=== PATIENT | male | born 1955 | race Hispanic/Latino ===

== ENCOUNTER 2020-06-27 21:28 | Inpatient (IN) | payer OTHER, SELFPAY ==
[2020-06-27] MEDS ORDERED: NA CHLORIDE 0.9% 1,000 ML ONE (21:55)
[2020-06-27] MEDS ORDERED: ASPIRIN 81 MG CHEWABLE TABLET ONE ×2 (21:55→23:01)
[2020-06-27 22:03] LABS: Absolute Lymphocytes (CBC) 1.5 K/uL (0.7-4.9); Basophils % 0.5 % (0-1.3); Hematocrit 43.1 % (39.6-49.0); Lymphocytes % 13.6 % (15.3-44.8); MPV 8.7 fL (7.6-11.3); RBC Red Blood Cell Count 4.68 M/uL (4.33-5.43)
[2020-06-27 22:04] LABS: Protime INR 1.11
[2020-06-27 22:16] LABS: ALT/SGPT 33 U/L (12-78); AST/SGOT 22 U/L (15-37); Albumin 3.8 g/dL (3.4-5.0); Alkaline Phosphatase 90 U/L (45-117); BUN Blood Urea Nitrogen 14 mg/dL (7-18); Bicarbonate 27 mmol/L (21-32); Bilirubin Direct 0.1 mg/dL (0-0.2); Bilirubin Total 0.7 mg/dL (0.2-1.0); Glucose Level 101 mg/dL (74-106); Lipase 115 U/L (73-393); Magnesium 2.3 mg/dL (1.8-2.4); NT PRO-BNP 95 pg/mL (<125); Potassium 4.1 mmol/L (3.5-5.1); Protein, Total 7.6 g/dL (6.4-8.2); Sodium Level 141 mmol/L (136-145); Troponin (Emerg Dept Use Only) < 0.02 ng/mL (0.0-0.045)
[2020-06-27] MEDS ORDERED: METOPROLOL TARTRATE 5 MG/5 ML INJ IV ONE (22:33)
[2020-06-27] MEDS ORDERED: METOPROLOL TAR 50 MG TAB ONE (22:33)
--- NOTE | 2020-06-27 22:39 | EDPHYS ---
Physician Documentation [facility] Name: Rajinder Kelsey Age: 64 yrs Sex: Male : 1955 Arrival Date: 06/27/2020 Time: 21:29 Bed 17 Private MD: ED Physician Gio Tariq HPI: 06/27 21:44 This 64 yrs old Male presents to ER via EMS with complaints of Chest Pain. kayley 21:44 The patient or guardian reports chest pain that is located primarily in the substernal kayley area, epigastric area. Onset: this morning. The pain radiates to. Associated signs and symptoms: The patient has no apparent associated signs or symptoms. The chest pain is described as a heaviness. Duration: The patient or guardian reports a single episode, that is still ongoing. Modifying factors: The symptoms are alleviated by nothing. the symptoms are aggravated by nothing. Severity of pain: At its worst the pain was mild in the emergency department the pain is unchanged. The patient has not experienced similar symptoms in the past. Historical: - Allergies: 21:33 No Known Allergies; em - PMHx: 21:33 Hyperlipidemia; Hypertension; Kidney stones; em - PSHx: 21:33 None; em - Immunization history:: Adult Immunizations not up to date. - Social history:: Smoking status: Patient denies any tobacco usage or history of. - Family history:: not pertinent. ROS: 21:44 Constitutional: Negative for fever, chills, and weight loss, Eyes: Negative for injury, kayley pain, redness, and discharge, ENT: Negative for injury, pain, and discharge, Neck: Negative for injury, pain, and swelling, Respiratory: Negative for shortness of breath, cough, wheezing, and pleuritic chest pain, Abdomen/GI: Negative for abdominal pain, nausea, vomiting, diarrhea, and constipation, Back: Negative for injury and pain, : Negative for injury, bleeding, discharge, and swelling, MS/Extremity: Negative for injury and deformity, Skin: Negative for injury, rash, and discoloration, Neuro: Negative for headache, weakness, numbness, tingling, and seizure, Psych: Negative for depression, anxiety, suicide ideation, homicidal ideation, and hallucinations, Allergy/Immunology: Negative for hives, rash, and allergies, Endocrine: Negative for neck swelling, polydipsia, polyuria, polyphagia, and marked weight changes, Hematologic/Lymphatic: Negative for swollen nodes, abnormal bleeding, and unusual bruising. 21:44 Cardiovascular: Positive for chest pain, of the chest. Exam: 21:44 Constitutional: This is a well developed, well nourished patient who is awake, alert, kayley and in no acute distress. Head/Face: Normocephalic, atraumatic. Eyes: Pupils equal round and reactive to light, extra-ocular motions intact. Lids and lashes normal. Conjunctiva and sclera are non-icteric and not injected. Cornea within normal limits. Periorbital areas with no swelling, redness, or edema. ENT: Nares patent. No nasal discharge, no septal abnormalities noted. Tympanic membranes are normal and external auditory canals are clear. Oropharynx with no redness, swelling, or masses, exudates, or evidence of obstruction, uvula midline. Mucous membranes moist. Neck: Trachea midline, no thyromegaly or masses palpated, and no cervical lymphadenopathy. Supple, full range of motion without nuchal rigidity, or vertebral point tenderness. No Meningismus. Chest/axilla: Normal chest wall appearance and motion. Nontender with no deformity. No lesions are appreciated. Cardiovascular: Regular rate and rhythm with a normal S1 and S2. No gallops, murmurs, or rubs. Normal PMI, no JVD. No pulse deficits. Respiratory: Lungs have equal breath sounds bilaterally, clear to auscultation and percussion. No rales, rhonchi or wheezes noted. No increased work of breathing, no retractions or nasal flaring. Abdomen/GI: Soft, non-tender, with normal bowel sounds. No distension or tympany. No guarding or rebound. No evidence of tenderness throughout. Back: No spinal tenderness. No costovertebral tenderness. Full range of motion. Male : Normal genitalia with no discharge or lesions. Skin: Warm, dry with normal turgor. Normal color with no rashes, no lesions, and no evidence of cellulitis. MS/ Extremity: Pulses equal, no cyanosis. Neurovascular intact. Full, normal range of motion. Neuro: Awake and alert, GCS 15, oriented to person, place, time, and situation. Cranial nerves II-XII grossly intact. Motor strength 5/5 in all extremities. Sensory grossly intact. Cerebellar exam normal. Normal gait. Psych: Awake, alert, with orientation to person, place and time. Behavior, mood, and affect are within normal limits. 21:44 Musculoskeletal/extremity: ROM: no acute changes, intact in all extremities, full active range of motion, full passive range of motion, Circulation is intact in all extremities. Sensation intact. Compartment Syndrome exam of affected extremity: is normal. DVT Exam: No signs of deep vein thrombosis. no pain, no swelling, no tenderness, negative Homans' sign noted on exam, no appreciated bluish discoloration, no erythema, no increased warmth. Vital Signs: 21:29 BP 172 / 95; Pulse 72; Resp 18; Temp 98.8(O); Pulse Ox 99% on R/A; Weight 95.25 kg; em Height 5 ft. 10 in. (177.80 cm); Pain 4/10; 22:05 BP 155 / 99; Pulse 77; Resp 24 S; Pulse Ox 100% on R/A; ca1 22:30 BP 160 / 105; Pulse 81; Resp 20 S; Pulse Ox 100% on R/A; ca1 23:00 BP 147 / 104; Pulse 59; Resp 22 S; Pulse Ox 100% on R/A; ca1 23:51 BP 156 / 98; Pulse 54; Resp 20 S; Pulse Ox 100% on R/A; ca1 21:29 Body Mass Index 30.13 (95.25 kg, 177.80 cm) em MDM: 21:30 Patient medically screened. kayley 21:48 Differential diagnosis: abnormal EKG, anxiety, coronary artery disease chest wall pain, kayley congestive heart failure hiatal hernia, pancreatitis, pulmonary embolus, stable angina, unstable angina. HEART Score: History: Moderately Suspicious (1), ECG: Normal (0), Age: > 45 and < 65 years (1), Risk Factors: > or = 3 Risk factors for atherosclerotic disease (2), [Hypercholesterolemia] [Hypertension] [+ Family HX] [Obesity] Troponin: < or = 1 x Normal Limit (0), Total Score = 4. The patient was given aspirin in the Emergency Department. The patient's deep vein thrombosis risk score was calculated as follows: Total Score: 0. This patient was found to be at low risk for a deep vein thrombosis by using the Well's assessment criteria. The patient's pulmonary embolism risk score was calculated as follows: Total Score: 0-2 points. This patient was found to be at low risk for a pulmonary embolism by using the Well's assessment criteria. ALEX Risk Score: TOTAL SCORE = 0. Data reviewed: vital signs, nurses notes, lab test result(s), EKG, radiologic studies, plain films. Data interpreted: shelter monitor: rate is 72 beats/min, rhythm is regular, Pulse oximetry: on room air is 99 %. Test interpretation: by ED physician or midlevel provider: ECG, plain radiologic studies. 06/27 21:31 Order name: Basic Metabolic Panel; Complete Time: 22:20 [facility] 06/27 21:31 Order name: CBC with Diff; Complete Time: 22:13 [facility] 06/27 21:31 Order name: LFT's; Complete Time: 22:20 [facility] 06/27 21:31 Order name: Magnesium; Complete Time: 22:20 [facility] 06/27 21:31 Order name: NT PRO-BNP; Complete Time: 22:20 [facility] 06/27 21:31 Order name: PT-INR; Complete Time: 22:13 [facility] 06/27 21:31 Order name: Troponin (emerg Dept Use Only); Complete Time: 22:20 [facility] 06/27 21:31 Order name: XRAY Chest (1 view) [facility] 06/27 21:31 Order name: Lipase; Complete Time: 22:20 [facility] 06/27 22:15 Order name: Troponin (emerg Dept Use Only): midnight [facility] 06/27 21:31 Order name: EKG; Complete Time: 21:32 [facility] 06/27 21:31 Order name: Cardiac monitoring; Complete Time: 22:02 [facility] 06/27 21:31 Order name: EKG - Nurse/Tech; Complete Time: 22:02 [facility] 06/27 21:31 Order name: IV Saline Lock; Complete Time: 22:02 [facility] 06/27 21:31 Order name: Labs collected and sent; Complete Time: 22:02 [facility] 06/27 21:31 Order name: O2 Per Protocol; Complete Time: 22:02 [facility] 06/27 21:31 Order name: O2 Sat Monitoring; Complete Time: 22:02 [facility] Administered Medications: 21:45 Drug: Aspirin 81 mg Route: PO; em 22:54 Follow up: Response: No adverse reaction ca1 21:48 Drug: NS 0.9% 1000 ml Route: IV; Rate: 125 ml/hr; Site: right antecubital; ca1 22:54 Follow up: Response: No adverse reaction; IV Status: Infusion continued upon admission ca1 22:25 Drug: Lopressor (metoprolol TARTRATE) 50 mg Route: PO; ca1 22:54 Follow up: Response: No adverse reaction ca1 22:25 Drug: Lopressor 2.5 mg Route: IVP; Site: right antecubital; ca1 23:00 Follow up: Response: No adverse reaction; Blood pressure is lowered ca1 22:36 Drug: Lopressor 2.5 mg Route: IVP; Site: right antecubital; ca1 22:59 Follow up: Response: No adverse reaction; Blood pressure is lowered ca1 22:42 Drug: Pepcid 20 mg Route: IVP; Site: right antecubital; ca1 23:22 Follow up: Response: No adverse reaction ca1 22:45 Drug: Aspirin Chewable Tablet 243 mg Route: PO; ca1 23:22 Follow up: Response: No adverse reaction ca1 22:54 Drug: Lisinopril 20 mg Route: PO; ca1 23:21 Follow up: Response: No adverse reaction ca1 22:54 Drug: Lovenox 1 mg/kg Route: Sub-Q; Site: right lower abdomen; ca1 23:22 Follow up: Response: No adverse reaction ca1 Disposition: 06/27/20 22:39 Hospitalization ordered by Satish Luna for Observation. Preliminary diagnosis are Chest pain, unspecified, Essential (primary) hypertension, Hyperlipidemia, unspecified. - Bed requested for Telemetry/MedSurg (observation). - Status is Observation. jb4 - Condition is Stable. - Problem is new. - Symptoms have improved. Signatures: Dispatcher [employer] Aliyah Hernandez RN RN mw Anderson, Corey, MD MD cha Munoz, Edgar, RN RN em Bryson, James, RN RN jb4 Ju Lees RN RN ca1 Corrections: (The following items were deleted from the chart) 23:43 22:39 Hospitalization Ordered by Satish Luna MD for Observation. Preliminary diagnosis is Chest pain, unspecified; Essential (primary) hypertension; Hyperlipidemia, unspecified. Bed requested for Telemetry/MedSurg (observation). Status is Observation. Condition is Stable. Problem is new. Symptoms have improved. kayley 06/28 00:19 06/27 23:43 06/27/2020 22:39 Hospitalization Ordered by Satish Luna MD for jb4 Observation. Preliminary diagnosis is Chest pain, unspecified; Essential (primary) hypertension; Hyperlipidemia, unspecified. Bed requested for Telemetry/MedSurg (observation). Status is Observation. Condition is Stable. Problem is new. Symptoms have improved. mw
--- NOTE | 2020-06-27 22:39 | ER ---
Nurse's Notes [facility] Name: Rajinder Kelsey Age: 64 yrs Sex: Male : 1955 Arrival Date: 06/27/2020 Time: 21:29 Bed 17 Private MD: Diagnosis: Chest pain, unspecified;Essential (primary) hypertension;Hyperlipidemia, unspecified Presentation: 06/27 21:29 Chief complaint: EMS states: called out to [facility] for an inmate that reported chest pain, em tachycardia and nausea, rates pain 4/10, EMS also reports since he has been in custody he has not received his BP meds, [facility] officer at bedside. Coronavirus screen: Client denies travel out of the [place] in the last 14 days. Ebola Screen: Patient negative for fever greater than or equal to 101.5 degrees Fahrenheit, and additional compatible Ebola Virus Disease symptoms Patient denies exposure to infectious person. Patient denies travel to an Ebola-affected area in the 21 days before illness onset. No symptoms or risks identified at this time. Initial Sepsis Screen: Does the patient meet any 2 criteria? No. Patient's initial sepsis screen is negative. Does the patient have a suspected source of infection? No. Patient's initial sepsis screen is negative. Risk Assessment: Do you want to hurt yourself or someone else? Patient reports no desire to harm self or others. Onset of symptoms was June 27, 2020. 21:29 Method Of Arrival: EMS: [facility] em 21:29 Acuity: KIERSTEN 2 em Historical: - Allergies: 21:33 No Known Allergies; em - PMHx: 21:33 Hyperlipidemia; Hypertension; Kidney stones; em - PSHx: 21:33 None; em - Immunization history:: Adult Immunizations not up to date. - Social history:: Smoking status: Patient denies any tobacco usage or history of. - Family history:: not pertinent. Screenin:45 Abuse screen: Denies threats or abuse. Denies injuries from another. Nutritional ca1 screening: No deficits noted. Tuberculosis screening: No symptoms or risk factors identified. Fall Risk IV access (20 points). Assessment: 21:45 General: Appears in no apparent distress. comfortable, Behavior is calm, cooperative, ca1 appropriate for age. Pain: Complains of pain in chest Pain does not radiate. Pain currently is 4 out of 10 on a pain scale. Pain began today. Neuro: Level of Consciousness is awake, alert, obeys commands, Oriented to person, place, time, situation. Cardiovascular: Heart tones S1 S2 present Capillary refill < 3 seconds Patient's skin is warm and dry. Rhythm is sinus rhythm. Respiratory: Airway is patent Respiratory effort is even, unlabored, Respiratory pattern is regular, symmetrical, Breath sounds are clear bilaterally. GI: Abdomen is round non-distended, Bowel sounds present X 4 quads. Abd is soft and non tender X 4 quads. : No signs and/or symptoms were reported regarding the genitourinary system. EENT: No signs and/or symptoms were reported regarding the EENT system. Derm: Skin is intact, is healthy with good turgor, Skin is pink, warm \T\ dry. Musculoskeletal: Circulation, motion, and sensation intact. Capillary refill < 3 seconds. 22:41 Reassessment: Patient appears in no apparent distress at this time. Patient and/or ca1 family updated on plan of care and expected duration. Pain level reassessed. Patient is alert, oriented x 3, equal unlabored respirations, skin warm/dry/pink. 23:51 Reassessment: Patient appears in no apparent distress at this time. Patient and/or ca1 family updated on plan of care and expected duration. Pain level reassessed. Patient is alert, oriented x 3, equal unlabored respirations, skin warm/dry/pink. Vital Signs: 21:29 BP 172 / 95; Pulse 72; Resp 18; Temp 98.8(O); Pulse Ox 99% on R/A; Weight 95.25 kg; em Height 5 ft. 10 in. (177.80 cm); Pain 4/10; 22:05 BP 155 / 99; Pulse 77; Resp 24 S; Pulse Ox 100% on R/A; ca1 22:30 BP 160 / 105; Pulse 81; Resp 20 S; Pulse Ox 100% on R/A; ca1 23:00 BP 147 / 104; Pulse 59; Resp 22 S; Pulse Ox 100% on R/A; ca1 23:51 BP 156 / 98; Pulse 54; Resp 20 S; Pulse Ox 100% on R/A; ca1 21:29 Body Mass Index 30.13 (95.25 kg, 177.80 cm) em ED Course: 21:29 Patient arrived in ED. em 21:30 Gio Tariq MD is Attending Physician. kayley 21:32 Triage completed. em 21:33 Arm band placed on. em 21:45 Patient has correct armband on for positive identification. Placed in gown. Bed in low ca1 position. Call light in reach. Side rails up X2. athletic monitor on. Pulse ox on. NIBP on. Warm blanket given. 21:47 No provider procedures requiring assistance completed. Initial lab(s) drawn, by me, ca1 sent to lab. Inserted saline lock: 20 gauge in right antecubital area, using aseptic technique. Blood collected. Patient maintains SpO2 saturation greater than 95% on room air. 21:56 XRAY Chest (1 view) In Process Unspecified. EDMS 22:02 Ju Lees RN is Primary Nurse. ca1 22:37 Satish Luna MD is Hospitalizing Provider. kayley 23:51 Patient admitted, IV remains in place. ca1 Administered Medications: 21:45 Drug: Aspirin 81 mg Route: PO; em 22:54 Follow up: Response: No adverse reaction ca1 21:48 Drug: NS 0.9% 1000 ml Route: IV; Rate: 125 ml/hr; Site: right antecubital; ca1 22:54 Follow up: Response: No adverse reaction; IV Status: Infusion continued upon admission ca1 22:25 Drug: Lopressor (metoprolol TARTRATE) 50 mg Route: PO; ca1 22:54 Follow up: Response: No adverse reaction ca1 22:25 Drug: Lopressor 2.5 mg Route: IVP; Site: right antecubital; ca1 23:00 Follow up: Response: No adverse reaction; Blood pressure is lowered ca1 22:36 Drug: Lopressor 2.5 mg Route: IVP; Site: right antecubital; ca1 22:59 Follow up: Response: No adverse reaction; Blood pressure is lowered ca1 22:42 Drug: Pepcid 20 mg Route: IVP; Site: right antecubital; ca1 23:22 Follow up: Response: No adverse reaction ca1 22:45 Drug: Aspirin Chewable Tablet 243 mg Route: PO; ca1 23:22 Follow up: Response: No adverse reaction ca1 22:54 Drug: Lisinopril 20 mg Route: PO; ca1 23:21 Follow up: Response: No adverse reaction ca1 22:54 Drug: Lovenox 1 mg/kg Route: Sub-Q; Site: right lower abdomen; ca1 23:22 Follow up: Response: No adverse reaction ca1 Outcome: 22:39 Decision to Hospitalize by Provider. kayley 23:56 Admitted to Med/surg accompanied by tech, via wheelchair, room 216, with chart, Other ca1 with [employer] Report called to BATSHEVA Regalado 23:56 Condition: stable 23:56 Instructed on the need for admit. 06/28 00:19 Patient left the ED. jb4 Signatures: Dispatcher [employer] Gio Wilkes MD MD cha Munoz, Edgar, RN RN Avel Chavez RN RN jb4 Ju Lees RN RN ca1 Corrections: (The following items were deleted from the chart) 06/27 22:41 22:30 BP 160 / 105; Pulse 71bpm; Resp 20bpm; Spontaneous; Pulse Ox 100% RA; ca1 ca1
[2020-06-27] MEDS ORDERED: FAMOTIDINE 20 MG/2 ML VIAL IV ONE (23:01)
[2020-06-27] MEDS ORDERED: ENOXAPARIN 100 MG/ML SYR SQ ONE (23:01)
[2020-06-27] MEDS ORDERED: lisinopriL 20 MG TAB ONE (23:01)
[2020-06-28] MEDS ORDERED: MORPHINE 4 MG/ML SYR IV PRN (00:33)
[2020-06-28] MEDS ORDERED: ACETAMINOPHEN 500 MG TAB PO PRN (00:33)
[2020-06-28] MEDS ORDERED: ONDANSETRON 4 MG/2 ML VIAL IV PRN (00:33)
[2020-06-28 01:09] VITALS: BMI 28.3
--- NOTE | 2020-06-28 02:30 | P.HP ---
Certification for Inpatient Patient admitted to: Observation With expected LOS: <2 Midnights Patient will require the following post-hospital care: None Practitioner: I am a practitioner with admitting privileges, knowledge of patient current condition, hospital course, and medical plan of care. Services: Services provided to patient in accordance with Admission requirements found in Title 42 Section 412.3 of the Code of Federal Regulations <[place] - Last Filed: 06/28/20 02:23> Patient History Date of Service: 06/28/20 Reason for admission: Chest Pain History of Present Illness: This is a 64-year-old male that came in via EMS from police station with complaints of chest pain that started this morning and has continued throughout this evening. Describes chest pain as pressure in nature that is in the substernal region. No radiation of pain, no nausea or vomiting, no dizziness, no will diaphoresis. Patient has a history of hyperlipidemia and hypertension. Patient worked up in the emergency room for chest pain was given medication when which patient stated that he felt better. Patient had no acute electrolyte or CBC findings. 1st round troponin was negative. No acute findings on EKG or chest x-ray. Medicine was consulted for observation for chest pain at that time. Home medications list reviewed: Yes - Past Medical/Surgical History Has patient received pneumonia vaccine in the past: No Diabetic: No -: Hypertension -: Hyperlipidemia -: Kidney stones - Family History Father -: Heart disease, Diabetes Mother -: Cancer - Social History Smoking Status: Former smoker Smoking therapy provided: No Alcohol use: No CD- Drugs: No Caffeine use: Yes Place of Residence: Home <Neyda Vangshua - Last Filed: 06/28/20 02:23> Date of Service: 07/02/20 <Fabiano Sage - Last Filed: 07/02/20 10:53> Allergies No Known Allergies Allergy (Verified 06/28/20 00:07) Home Medications: Citalopram Hydrobromide [Citalopram HBr] 1 tab PO DAILY 06/28/20 Lisinopril [Zestril] 30 mg PO DAILY 06/28/20 Simvastatin 40 mg PO BEDTIME 06/28/20 Review of Systems General: Unremarkable Eyes: Unremarkable ENT: Unremarkable Respiratory: Unremarkable Cardiovascular: Chest Pain Gastrointestinal: Unremarkable Genitourinary: Unremarkable Musculoskeletal: Unremarkable Integumentary: Unremarkable Neurological: Unremarkable Lymphatics: Unremarkable <[place] - Last Filed: 06/28/20 02:23> Physical Examination - Vital Signs Temperature: 98.7 F Blood Pressure: 160/90 Pulse: 53 Respirations: 20 Pulse Ox (%): 97 - Physical Exam General: Alert, In no apparent distress, Oriented x3, Cooperative HEENT: PERRLA, Mucous membr. moist/pink, EOMI Neck: Supple, 2+ carotid pulse no bruit, JVD not distended, No Thyromegaly Respiratory: Clear to auscultation bilaterally, Normal air movement Cardiovascular: No edema, Normal pulses, Regular rate/rhythm, Normal S1 S2, No gallops, No rubs, No murmurs Capillary refill: <2 Seconds Gastrointestinal: Normal bowel sounds, Soft and benign, Non-distended, No ascites, No tenderness, No masses, No rebound, No guarding Musculoskeletal: No clubbing, No swelling, No contractures, No erythema, No tenderness, No warmth Integumentary: No rashes, No breakdown, No significant lesion, No tenderness/swelling, No erythema, No warmth, No cyanosis Neurological: Normal speech, Normal strength at 5/5 x4 extr, Normal tone, Sensation intact, Cranial nerves 3-12 intact, Normal affect Lymphatics: No axilla or inguinal lymphadenopathy - Studies Laboratory Data (last 24 hrs) 06/27/20 21:48: PT 13.1 H, INR 1.11 06/27/20 21:48: WBC 11.0 H, Hgb 14.4, Hct 43.1, Plt Count 202 06/27/20 21:48: Sodium 141, Potassium 4.1, BUN 14, Creatinine 1.11, Glucose 101, Magnesium 2.3, Total Bilirubin 0.7, AST 22, ALT 33, Alkaline Phosphatase 90, Lipase 115 <MandavirgilNeyda [place] - Last Filed: 06/28/20 02:23> Assessment and Plan - Problems (Diagnosis) (1) Hypertension Status: Acute (2) Hyperlipidemia Status: Acute (3) Chest pain Status: Acute - Plan 1. Patient will be admitted to telemetry floor to monitor heart rate and vital signs throughout the night. 2. Patient will have serial troponins drawn throughout the evening to ensure they do not elevate. EKGs as necessary 3. Cardiology has been consulted for chest pain secondary to age in history 4. Lipid panel be drawn to ensure patient is on adequate antihyperlipidemic 's 5. Patient will be given pain medicine as needed for chest pain 6. Blood pressure be controlled to a systolic pressure of 160 and or diastolic pressure 110 Patient hemodynamically stable and with minimal to no pain upon admission. If patient continues to remain stable and troponins returned negative. We will wait for cardiology to consult to see if they want to further assess patient's chest pain or he can be discharged for outpatient workup. I believe patient will be able to go home within the next 24 hr or less at this time. Discharge Plan: Other (Half-Way) - Advance Directives Does patient have a Living Will: No Does patient have a Durable POA for Healthcare: No - Code Status/Comfort Care Code Status Assessed: No Critical Care: No Time Spent Managing Pts Care (In Minutes): 70 <[place] - Last Filed: 06/28/20 02:23> - Plan Agree with plan as noted above by [place], monitor on telemetry, trend troponins, awaiting eval by cardiology. To be managed by Dr. Luna in AM of 06/28 <Fabiano Sage - Last Filed: 07/02/20 10:53>
[2020-06-28 06:05] LABS: Absolute Lymphocytes (CBC) 1.7 K/uL (0.7-4.9); Basophils % 0.7 % (0-1.3); Hematocrit 41.9 % (39.6-49.0); Lymphocytes % 16.3 % (15.3-44.8); MPV 9.1 fL (7.6-11.3); RBC Red Blood Cell Count 4.62 M/uL (4.33-5.43)
[2020-06-28] MEDS ORDERED: lisinopriL 20 MG TAB PO ONE (08:07)
[2020-06-28] MEDS ORDERED: METOPROLOL TARTRATE 5 MG/5 ML INJ IV ONE (08:07)
[2020-06-28] MEDS ORDERED: ASPIRIN EC 81 MG TAB PO SCH (09:00)
[2020-06-28] MEDS ORDERED: INFLUENZA VACCINE (for 3y+) 0.5 ML DOSE IMVAC ONE (09:00)
[2020-06-28 09:20] VITALS: O2SAT 96
--- NOTE | 2020-06-28 12:20 | RAD REPORT ---
EXAM DESCRIPTION: RAD - Chest Single View - 06/27/2020 9:56 pm CLINICAL HISTORY: CHEST PAIN Chest pain. COMPARISON: No comparisons FINDINGS: Portable technique limits examination quality. The lungs are grossly clear. The heart is normal in size. No displaced fractures. IMPRESSION: No acute intrathoracic process suspected.
[2020-06-28 16:01] VITALS: BP 138/69; TEMP 97.3
--- NOTE | 2020-06-28 16:44 | P.DS ---
Admission Date: 06/27/20 Discharge Date: 06/28/20 Disposition: ROUTINE DISCHARGE Discharge Condition: FAIR Reason for Admission: Chest Pain Consultations: DR. Wayne, cardiology Brief History of Present Illness: PT AW with chest pain Hospital Course: Admitted for observation. c/o chest pain. Pt was accompanied by a police lieutenant. Apperaed very anxious nervous. C/o chest pain. No cardiac hx, Ain resolced. Tropoins neg. Stable at the time of discharge. Vitals stable. S/E Dr. Wayne Vital Signs/Physical Exam: Temp Pulse Resp BP Pulse Ox 97.3 F 58 18 138/69 97 06/28/20 15:59 06/28/20 15:59 06/28/20 15:59 06/28/20 15:59 06/28/20 15:59 Laboratory Data at Discharge: WBC 10.5 K/uL (4.3-10.9) 06/28/20 05:13 Hgb 14.3 g/dL (13.6-17.9) 06/28/20 05:13 Hct 41.9 % (39.6-49.0) 06/28/20 05:13 Plt Count 190 K/uL (152-406) 06/28/20 05:13 PT 13.1 SECONDS (9.5-12.5) H 06/27/20 21:48 INR 1.11 06/27/20 21:48 Sodium 139 mmol/L (136-145) 06/28/20 05:13 Potassium 4.0 mmol/L (3.5-5.1) 06/28/20 05:13 BUN 15 mg/dL (7-18) 06/28/20 05:13 Creatinine 1.08 mg/dL (0.55-1.3) 06/28/20 05:13 Glucose 92 mg/dL (74-106) 06/28/20 05:13 Magnesium 2.3 mg/dL (1.8-2.4) 06/27/20 21:48 Total Bilirubin 0.7 mg/dL (0.2-1.0) 06/27/20 21:48 AST 22 U/L (15-37) 06/27/20 21:48 ALT 33 U/L (12-78) 06/27/20 21:48 Alkaline Phosphatase 90 U/L (45-117) 06/27/20 21:48 Troponin I < 0.02 ng/mL (0.0-0.045) 06/28/20 05:13 Triglycerides 128 mg/dL (<150) 06/28/20 05:13 Cholesterol 213 mg/dL (<200) H 06/28/20 05:13 HDL Cholesterol 77 mg/dL (40-60) H 06/28/20 05:13 Cholesterol/HDL Ratio 2.77 06/28/20 05:13 Lipase 115 U/L (73-393) 06/27/20 21:48 Home Medications: Citalopram Hydrobromide [Citalopram HBr] 1 tab PO DAILY 06/28/20 Lisinopril [Zestril] 30 mg PO DAILY 06/28/20 Simvastatin 40 mg PO BEDTIME 06/28/20 Patient Discharge Instructions: To F/u with Dr. Wayne Diet: Regular Followup: NONE,NONE [Primary Care Provider] - Yvon Wayne MD [ACTIVE - CAN ADMIT] -
--- NOTE | 2020-06-28 18:04 | CON ---
Date of Consultation: 06/28/2020 Reason For Consultation: Chest pain. History Of Present Illness: 64-year-old male, who was brought in by ambulance because of chest disco mfort, palpitations. He had restriction order to go to his house by his and then he got in ther e, police was called. Patient started having some palpitations, chest discomfort. This completely r esolved and feels well at this moment. Does not have any further complaints. Past Medical History: Hypertension, dyslipidemia, kidney stone. Medications: Refer to reconciliation sheet for detailed list. Family History: Diabetes. Social History: Does not smoke or drink. Does not use any drugs. Review of Systems: All systems reviewed and they were negative except for mentioned in the HPI. Physical Examination: Vital Signs: Temperature is 98.9, pulse 70, breathing 18, blood pressure 144/81, saturating 96%. Pleasant middle-aged male, in no distress. Head and Neck: Pupils are equal, reactive to light. Intact eye movements. No JVD. No cervical lym phadenopathy. Neck is supple. Thyroid is not enlarged. Lungs: Clear to auscultation bilaterally. No rhonchi, rales, or crackles. No accessory muscle use. Heart: Regular rate and rhythm. No extra sounds. Abdomen: Soft, nontender. Bowel sounds positive. No organomegaly. No masses or hernia. No rigidi ty or rebound. Extremities: No edema, clubbing, or cyanosis. Intact pulses. SKIN: No rashes. Neurologic: Alert, oriented x3. No acute focal deficits appreciated. Investigations: Troponins x3 are negative. Cholesterol is 110, HDL is 77, hemoglobin is 14.5, white blood count 10.5. Assessment/plan: Chest pain, atypical. Cardiac enzymes are negative without any acute EKG abnormali ties. Okay from the cardiac standpoint to be released and follow up as an outpatient with exercise s tress test and an echo. Thank you for the consultation. /KATHLEEN Voice ID: [id number] Report ID: [id number]
[2020-06-28] MEDS ORDERED: ATORVASTATIN 20 MG TAB PO SCH (21:00)
[2020-06-28] MEDS ORDERED: HOME MED 1 EA UNK (Simvastatin [Simvastatin] 40 MG) PO SCH (21:00)
[2020-06-29] MEDS ORDERED: HOME MED 1 EA UNK (Citalopram Hydrobromide [Citalopram Hbr] 1 TAB) PO SCH (09:00)
[2020-06-29] MEDS ORDERED: lisinopriL 10 MG TAB PO SCH (09:00)
[2020-06-29] MEDS ORDERED: CITALOPRAM 10 MG TABLET PO SCH (09:00)
== END 2020-06-28 16:45 | disposition home or self-care (01) | DRG 313 ==
LOC: ER 21:28 → OBSVTOIN 23:26 → ERHOLD 23:26 → 2ND 23:57
PROVIDERS: ADMIT Internal Medicine Sleep Medicine; ATTEND Internal Medicine Sleep Medicine
DX: R07.89 Other chest pain (principal); E78.5 Hyperlipidemia, unspecified; F41.9 Anxiety disorder, unspecified; I10 Essential (primary) hypertension; Z87.891 Personal history of nicotine dependence; Z79.899 Other long term (current) drug therapy; Z20.828 Contact with and (suspected) exposure to other viral communicable diseases; Z23 Encounter for immunization
CPT/HCPCS: 36415; 71045; 80048; 80061; 80076; 83690; 83735; 83880; 84484; 85025; 85610; 90471; 93005; 96361; 96372; 96374; 96375; 99285; J1650; J7030; Q2035; U0002